=== PATIENT | female | born 1955 | race Caucasian/White ===

== ENCOUNTER 2024-03-08 12:27 | Outpatient (CLI) | payer MEDICARE, SELFPAY ==
--- NOTE | ~2024-03-08 | XR_ITS ---
XR foot RT min 3V DATE: 03/08/2024 12:41 INDICATION: Right foot pain TECHNIQUE: 4 standing views COMPARISON: None FINDINGS: Mild plantar and posterior calcaneal episodically. Mild osteoarthritis at the first metatarsophalangeal joint. Incorporated os tibiale externum, normal variant. No fracture, dislocation, periosteal reaction or bone destruction is detected. IMPRESSION: Mild plantar and posterior calcaneal enthesopathy Mild osteoarthritis of first metatarsophalangeal joint Reviewed, dictated and finalized at location B.
== END 2024-03-08 12:28 | disposition home or self-care (01) ==
PROVIDERS: PCP Physician Assistant; Visit Provider Orthopaedic Surgery
DX: M79.671 Pain in right foot (principal); M77.31 Calcaneal spur, right foot; M19.071 Primary osteoarthritis, right ankle and foot
CPT/HCPCS: 73630